=== PATIENT | male | born 1985 | race Hispanic/Latino ===

== ENCOUNTER 2024-11-10 19:37 | Emergency (ER) | payer OTHER ==
[~2024-11-10] VITALS: Ht 167.6 cm; Wt 95.3 kg
[~2024-11-10 19:37] MED LIST: LEVO750T21 PO; LISI2.5T13 PO; METF-446 PO; SULF1TAB42 PO
--- NOTE | 2024-11-10 19:46 | ERN ---
General Stated Complaint: CHEST PAINS Time Seen by : 19:38 Source: patient History of Present Illness Initial Comments Patient is a 39-year-old male coming in to be evaluated for chest pressure. Pt patient states that the chest pressure began three days ago. Patient also states that the chest pressure is still present not as intense and it waxes and wanes. He also states that he has not had this pressure before he has no history of coronary artery disease. He quantifies the pressure at 5/10. Allergies: Coded Allergies: No Allergy Information Available (Verified Allergy, Unknown, 06/08/16) No Known Drug Allergies (Unverified Allergy, Unknown, 06/08/16) Home Meds Active Scripts Levofloxacin (Levaquin) 750 Mg Tablet, 750 MG PO DAILY, #15 TAB Prov:FRANCISCO JAVIER LEDESMA Jr., MD 06/11/16 Sulfamethoxazole/Trimethoprim (Bactrim Ds Tablet) 1 Each Tablet, 1 TAB PO BID, #30 TAB Prov:FRANCISCO JAVIER LEDESMA Jr., MD 06/11/16 Metformin HCl (Metformin HCl) 1,000 Mg Tablet, 1000 MG PO BIDAC, #60 TAB Prov:FRANCISCO JAVIER LEDESMA Jr., MD 06/11/16 Reported Medications Lisinopril (Lisinopril) 2.5 Mg Tablet, 2.5 MG PO DAILY, TAB 06/08/16 Past Medical History Past Medical History: No Pertinent History Past Surgical History: Other Surgical History Other: RT ELBOW ROS Dictation CONSTITUTIONAL: No chills, no fever, no weakness, no diaphoresis, no malaise. HEAD/FACE: No signs of trauma. EENT: No eye pain, no blurred vision, no tearing, no double vision, no ear pain, no ear discharge, no nose pain, no nasal congestion, no throat pain, no throat swelling, no mouth pain. RESPIRATORY: No cough, no orthopnea, no SOB, no stridor, no wheezing. CARDIOVASCULAR: chest pain, no edema, no palpitations, no syncope. GASTROINTESTINAL/ABDOMINAL: No abdominal pain, no constipation, no diarrhea, no nausea, no vomiting. GENITOURINARY: No abnormal discharge, no dysuria, no frequent urination, no hematuria. No complaints of pain in the genitals. MUSCULOSKELETAL: No back pain, no gout, no joint pain, no joint swelling, no muscle pain, no muscle stiffness, no neck pain. INTEGUMENTARY: No change in color, no change in hair/nails, no dryness, no lesion, no lumps, no rash. NEUROLOGICAL/PSYCH: No anxiety, not depressed, no emotional problem, no headache, no numbness, no pre-existing deficit, no history of seizures, no tremors, no weakness. HEMATOLOGIC/LYMPHATIC: Not anemic, no history of blood clots, no apparent bleeding, no bruising, glands not swollen. All Systems Negative, Except as Noted. Physical Exam Physical Exam Dictation VITAL SIGNS: Reviewed. GENERAL APPEARANCE: Alert, oriented x3, no acute distress, obese. HEAD AND FACE: Non-traumatic. EYES: PERRL, pink conjunctivas, eyelid no trauma, anterior chamber clear. EARS: Pinnas intact and no signs of trauma or erythema. Ear canals clear and no discharge. TMs no erythema. NOSE: No discharge, no bleeding. OROPHARYNX: Mouth normal, teeth no caries, tongue pink. Pharynx clear, no erythema. Tonsils no exudates, no abscesses noted. Mucous membrane moist. NECK: Supple, non-tender, no thyromegaly, no masses, no JVD, no bruits. BREAST: Deferred. CHEST: No tenderness, no crepitus, no paradoxical movement, no retractions. LUNGS: Clear, well-ventilated, symmetric, no rales, no wheezing, no rhonchi, no stridor, good breath sounds bilaterally. HEART: Regular rate, regular rhythm, no murmur, no gallops. VASCULAR: No peripheral edema. ABDOMEN: Soft, positive bowel sounds, nondistended, no guarding, nontender, no rebound, no masses no hepatomegaly, no splenomegaly, no Valle's sign, no hernias. RECTAL: Deferred. GENITAL: Deferred. NEUROLOGICAL: Normal speech, gross motor function intact, gross sensory function intact. MUSCULOSKELETAL: Neck nontender, full range of motion, back nontender, full range of motion. EXTREMITIES: Nontender, full range of motion. SKIN: Color pink, dry, no turgor, no rash, no lacerations, no abrasions, no contusions. LYMPHATICS: Deferred. Results Laboratory and Microbiology Lab and Micro Result Laboratory Tests Test 11/10/24 20:00 White Blood Count 5.8 K/uL (4.8-10.8) Red Blood Count 5.47 MIL/uL (4.50-6.20) Hemoglobin 16.6 g/dL (14.0-18.0) Hematocrit 46.5 % (42-54) Mean Corpuscular Volume 85.0 fL (79-99) Mean Corpuscular Hemoglobin 30.3 pg (27.0-33.0) Mean Corpuscular Hemoglobin Concent 35.7 g/dL (32.0-36.0) Red Cell Distribution Width 11.9 % (11.0-15.5) Platelet Count 174 K/uL (130-400) Mean Platelet Volume 11.0 fL (7.5-10.5) H Immature Granulocyte % (Auto) 0.5 % (0-1) Neutrophils (%) (Auto) 58.2 % (40.0-77.0) Lymphocytes (%) (Auto) 31.0 % (21.0-51.0) Monocytes (%) (Auto) 7.9 % (3.0-13.0) Eosinophils (%) (Auto) 1.5 % (0.0-8.0) Basophils (%) (Auto) 0.9 % (0.0-5.0) Neutrophils # (Auto) 3.4 K/uL (1.8-7.7) Lymphocytes # (Auto) 1.8 K/uL (1.0-4.8) Monocytes # (Auto) 0.5 K/uL (0.1-1.0) Eosinophils # (Auto) 0.09 K/uL (0.00-0.70) Basophils # (Auto) 0.05 K/uL (0.00-0.20) Absolute Immature Granulocyte (auto 0.03 K/uL (0-1) Nucleated Red Blood Cells 0.0 % (0.0-0.19) Prothrombin Time 10.2 SEC (9.6-11.6) Prothromb Time International Ratio <= 0.93 (0.85-1.15) Activated Partial Thromboplast Time 25.1 SEC (26.3-35.5) L Sodium Level 141 mmol/L (136-145) Potassium Level 4.4 mmol/L (3.5-5.1) Chloride Level 101 mmol/L (101-111) Carbon Dioxide Level 29 mmol/L (21-32) Blood Urea Nitrogen 15 mg/dL (7-18) Creatinine 1.1 mg/dL (0.5-1.3) Glomerular Filtration Rate Calc 87 mL/min (>90) Random Glucose 305 mg/dL (70-105) H Total Calcium 9.0 mg/dL (8.5-10.1) Magnesium Level 1.60 mg/dL (1.80-2.40) L Total Creatine Kinase 133 U/L (21-232) Troponin I High Sensitivity 4 ng/L (4-75) B-Type Natriuretic Peptide 6 pg/mL (0-100) EKG/XRAY/US/CT/MRI EKG Comment 11/10/2024 time 7:46 p.m. Ventricular rate [address] wave elevation or depression HI 120 X-RAY Comment [address] [place] [id number] IMAGING REPORT Signed PATIENT: ORLY TRUJILLO MR#: [id number] : 1985 SEX: M AGE: 39 LOCATION: [facility] ORDER 44 STATUS: [facility] ER REPORT#: [id number] SERVICE 42 REASON: cp ORDERING PHYSICIAN: DEISY ORONA MD PROCEDURE: CXR1VW - CHEST 1VW CHEST 1VW CLINICAL HISTORY: cp COMPARISON: None TECHNIQUE: Single view of the chest was obtained. FINDINGS: Lungs are clear. The cardiac size and mediastinum are unremarkable. The bony structures are within normal limits. IMPRESSION: No acute cardiopulmonary process identified. DICTATED BY: STEVE RAGLAND DO DATE: 11/10/242029 ELECTRONICALLY SIGNED BY: STEVE RAGLAND DO DATE: 11/10/242032 [facility] MDM: Differential diagnosis: GERD, NSTEMI, ACS, STEMI Rationale: Tests considered and ordered secondary to shared decision making include: Previous outside records reviewed: Old ER visits. Risk of complication and/or morbidity or mortality of patient management: None Medications-Per medication reconciliation Need for hospitalization: Patient does not meet criteria for hospitalization. Need for emergency major/minor surgery: No There are no social concerns with this patient. Prescription drug management Prescriptions will include symptomatic care Patient's prior external medical records from other ER visits were reviewed by me as indicated. Prior testing and results from previous visits were reviewed. Prior tests were taken into account with medical decision making and resource utilization, independent historian/historians were used to obtain complete medical history. I independently interpreted the test that were performed, results were reviewed by me and considered findings on radiology if ordered. Medical management and examination interpretation discussions were had by me with other qualified healthcare professionals as indicated for the patient's care. Patient is a 39-year-old male coming in to be evaluated for epigastric discomfort. Patient states that the symptoms began couple of weeks ago in his been progressively getting worse. Cardiac workup negative for acute findings. Patient received IV Protonix states his symptoms completely subsided. Patient will be discharged with a diagnosis of GERD with a gastritis. I advised him appropriate follow up with PCP in 1-2 days for ongoing evaluation. ED Course Orders Procedure Category Date Status Time Cbc With Differential LAB 11/10/24 Complete 19:43 Prothrombin Time With LAB 11/10/24 Complete INR 19:43 B-Type Natriuretic LAB 11/10/24 Complete Peptide 19:43 Chest 1vw RAD 11/10/24 Resulted 19:43 12 Lead Ekg Tracing- EKG 11/10/24 Complete Technical 19:43 Magnesium LAB 11/10/24 Complete 19:43 Creatine Kinase, Total LAB 11/10/24 Complete 19:43 Troponin I High LAB 11/10/24 Complete Sensitivity 19:43 Urinalysis Profile LAB 11/10/24 Logged 19:43 Partial LAB 11/10/24 Complete Thromboplastin Time 19:43 Basic Metabolic Panel LAB 11/10/24 Complete 19:43 Pantoprazole 40mg Inj PHA 11/10/24 Complete (Protonix 40mg Inj 20:00 0.9%Nacl 1000ml (Ns PHA 11/10/24 Complete 1000ml) 22:00 Magnesium 2gm Premix PHA 11/10/24 Complete 50ml (Magnesium 2gm 21:50 Current Medications Medications (Trade) Dose Ordered Sig/Eneida Route PRN Reason Start Time Stop Time Status Last Admin Dose Admin Magnesium Sulfate 50 ml @ 0 mls/hr PROTOCOL STAT IV 11/10/24 21:50 11/10/24 21:51 DC 11/10/24 22:28 Pantoprazole Sodium (PROTonix 40MG INJ) 40 mg ONCE ONCE IVP 11/10/24 20:00 11/10/24 20:01 DC 11/10/24 20:20 Sodium Chloride 1,000 ml @ 0 mls/hr ONCE ONCE IV 11/10/24 22:00 11/10/24 22:01 DC 11/10/24 22:18 Vital Signs Date Time Temp Pulse Resp B/P (MAP) Pulse Ox O2 Delivery O2 Flow Rate FiO2 11/10/24 20:11 98.1 86 20 148/76 97 Room Air* 0 21 11/10/24 19:39 97.9 97 20 151/99 99 Room Air HEART Score Response (Comments) Value History: Low suspicion (0) 0 EKG: Normal 0 Age: < 45yrs (0) 0 Risk Factors: No known risk factors (0) 0 Initial Troponin: Normal limit (0) 0 HEART Score Risk: Low Risk for MACE (1-3) Total 0 DX & DISP Disposition: Discharge Departure Impression: Primary Impression: GERD (gastroesophageal reflux disease) Condition: Stable Scripts Pantoprazole Sodium (Protonix) 40 Mg Ectab 1 TAB PO DAILY for 30 Days, #30 TAB 0 Refills Prov: DEISY ORONA MD 11/10/24 Additional Instructions: You have been reviewed in the emergency department at [facility] after presenting with chest pain. After considering your history, your risk factors, your EKG and your blood test troponins, have been found to be at very low risk less than (1 in 100) of having a major adverse cardiac event (like heart attack) in the near future. In the " low risk" group, the risks of doing further tests and treatment as the inpatient outweighs the benefits. In many patients in the low risk group for the test of any sort or unnecessary, however he should discuss this further with his general practitioner who will understand the medical and personal backgrounds better. Because we have never declared you" no risk" we would suggest. 1 returning for medical review if you have further episodes of chest pain/arm pain or other concerning symptoms like dizziness, collapse, palpitations or shortness of breath. 2. Following up with your local doctor who will consider the need for further testing and will also ensure that any modifiable risk factors you may have for heart disease are optimally managed. Patient will be discharged in stable condition at the moment discharge patient states , no chest pain Referrals: RENZO DEMARCO MD (PCP) Time of Disposition: 22:33 DEISY ORONA MD Nov 10, 2024 19:46
--- NOTE | 2024-11-10 19:52 | EKG ---
[facility] Test Date: 2024-11-10 Test Time: 19:46:37 Pat Name: ORLY TRUJILLO Department: [facility] Room: Gender: M Copy Director: [id number] : 1985 Requested By: DEISY ORONA Order Number: [id number] Reading MD: Clif Campbell Measurements Intervals [place] Rate: 78 P: 57 MD: 120 QRS: 99 QRSD: 93 T: -22 QT: 350 QTc: 399 Interpretive Statements Sinus rhythm Inferior infarct, age indeterminate No previous ECG available for comparison Electronically Signed On 11-11-2024 12:17:35 COLOR CHECKER by Clif Campbell Please click the below link to view image of tracing.
--- NOTE | 2024-11-10 19:58 | NUR ---
REPORT TO KAI OLSON
[2024-11-10 20:15] LABS: BASOPHILS # (AUTO) 0.05 K/uL (0.00-0.20); BASOPHILS % (AUTO) 0.9 % (0.0-5.0); EOSINOPHILS # (AUTO) 0.09 K/uL (0.00-0.70); EOSINOPHILS % (AUTO) 1.5 % (0.0-8.0); HEMATOCRIT 46.5 % (42-54); IMMATURE GRANULOCYTE ABSOLUTE 0.03 K/uL (0-1); LYMPHOCYTES # (AUTO) 1.8 K/uL (1.0-4.8); MEAN CORPUSCULAR HEMOGLOBIN 30.3 pg (27.0-33.0); MEAN CORPUSCULAR HGB CONC 35.7 g/dL (32.0-36.0); MONOCYTES # (AUTO) 0.5 K/uL (0.1-1.0); MONOCYTES % (AUTO) 7.9 % (3.0-13.0); NEUTROPHILS # (AUTO) 3.4 K/uL (1.8-7.7); NEUTROPHILS % (AUTO) 58.2 % (40.0-77.0); PLATELET COUNT (AUTO) 174 K/uL (130-400); RED BLOOD CELL COUNT(AUTO) 5.47 MIL/uL (4.50-6.20); RED CELL DISTRIBUTION WIDTH 11.9 % (11.0-15.5); WHITE BLOOD COUNT (AUTO) 5.8 K/uL (4.8-10.8)
[2024-11-10] MEDS: PANTOPrazole 40 MG/VIAL IVP ONE (20:20)
[2024-11-10 20:24] LABS: CREATININE 1.1 mg/dL (0.5-1.3); POTASSIUM 4.4 mmol/L (3.5-5.1)
[2024-11-10 20:29] LABS: MAGNESIUM 1.6 mg/dL (1.80-2.40)
--- NOTE | 2024-11-10 20:33 | HMCIMG ---
CHEST 1VW CLINICAL HISTORY: cp COMPARISON: None TECHNIQUE: Single view of the chest was obtained. FINDINGS: Lungs are clear. The cardiac size and mediastinum are unremarkable. The bony structures are within normal limits. IMPRESSION: No acute cardiopulmonary process identified.
[2024-11-10 20:40] LABS: B-TYPE NATRIURETIC PEPTIDE 6 pg/mL (0-100)
[2024-11-10 20:50] LABS: INR <= 0.93 (0.85-1.15); PROTHROMBIN TIME 10.2 SEC (9.6-11.6)
[2024-11-10 20:52] LABS: PARTIAL THROMBOPLASTIN TIME 25.1 SEC (26.3-35.5)
[2024-11-10] MEDS: 0.9%NACL 1000ML 1,000 ML IV ONE (22:18)
[2024-11-10] MEDS: MAGNESIUM 2GM PREMIX 50ML 50 ML IV STA (22:28)
[2024-11-10] MEDS ORDERED: PANT40TA55 PO (22:33)
[2024-11-10 22:49] LABS: APPEARANCE,URINE CLOUDY (CLEAR); BILIRUBIN,URINE NEGATIVE (NEGATIVE); COLOR,URINE LIGHT-YELLOW (YELLOW); GLUCOSE, URINE (UA) >=1000 mg/dL (NEGATIVE); KETONES,URINE NEGATIVE (NEGATIVE); LEUKOCYTE ESTERASE ,URINE NEGATIVE Leu/uL (NEGATIVE); NITRATE,URINE NEGATIVE (NEGATIVE); OCCULT BLOOD,URINE NEGATIVE (NEGATIVE); PROTEIN,URINE NEGATIVE (NEGATIVE); UROBILINOGEN,URINE 0.2 mg/dL (0.2-1.0)
[2024-11-10 22:51] LABS: ADD UA MICROSCOPIC YES
[2024-11-10 22:56] LABS: MUCUS,URINE RARE LPF (None Seen); SQUAMOUS EPITHELIAL CELL,UR RARE /HPF (0-2); WBC,URINE 0-1 /HPF (0-1)
[2024-11-10 23:21] VITALS: BP 128/61; PULSE 79; RESP 18; TEMP 98.2; O2SAT 99
== END 2024-11-10 23:23 | disposition home or self-care (01) ==
LOC: EDH 19:37
DX: K21.9 Gastro-esophageal reflux disease without esophagitis (principal); Z79.899 Other long term (current) drug therapy; Z98.890 Other specified postprocedural states
CPT/HCPCS: 99285; 96365; 71045; 96375; 82550; 83735; 84484; 80048; 83880; 85025; 85610; 85730; 81001; 36415; 93005; J3475; J7030; J2470